=== PATIENT | female | born 1950 | race Caucasian/White ===

== ENCOUNTER 2017-06-14 22:03 | Emergency (ER) | payer MEDICARE, OTHER ==
--- NOTE | 2017-06-14 22:42 | EDM.PDOC ---
ED HPI GENERAL MEDICAL PROBLEM - General Chief Complaint: Cardiovascular Problem Stated Complaint: irregular heart beat, dizzy, WOLF Time Seen by Provider: 06/14/17 22:25 Source of Information: Reports: Patient History Limitations: Reports: No Limitations - History of Present Illness INITIAL COMMENTS - FREE TEXT/NARRATIVE: Patient is a 15-year-old who states that for the last 3 days has not been feeling her usual self she has noticed increase irregular rhythm dizziness and headache in for evaluation EKG at this time done revealed normal sinus rhythm without any PVCs telemetry does reveal unifocal PVCs Duration: Day(s): (3 days), Getting Worse Location: Reports: Head, Chest Severity: Mild Associated Symptoms: Reports: Headaches Treatments COMMERCIAL LOAN OFFICER: Reports: NSAIDS Frontal Headache Pain Score (Numeric/FACES): 5 - Related Data Allergies Allergy/AdvReac Type Severity Reaction Status Date / Time No Known Allergies Allergy Verified 06/14/17 22:04 Home Meds: Home Meds Escitalopram [Lexapro] 20 mg PO DAILY 04/01/14 [History] Multivit-Min/FA/Lycopene/Lut [Centrum Silver] 1 tab PO DAILY 04/01/14 [History] Triamterene/Hydrochlorothiazid [Triamterene-HCTZ 37.5-25 MG] 1 tab PO DAILY 05/15 [History] Social & Family History - Tobacco Use Smoking Status *Q: Never Smoker Years of Tobacco use: 1 Used Tobacco, but Quit: Yes Second Hand Smoke Exposure: No - Caffeine Use Caffeine Use: Reports: Coffee - Alcohol Use Days Per Week of Alcohol Use: 0 - Recreational Drug Use Recreational Drug Use: No Drug Use in Last 12 Months: No ED ROS GENERAL - Review of Systems Review Of Systems: See Below Constitutional: Reports: Fatigue HEENT: Reports: No Symptoms Respiratory: Reports: No Symptoms Cardiovascular: Reports: No Symptoms Endocrine: Reports: No Symptoms GI/Abdominal: Reports: No Symptoms : Reports: No Symptoms Musculoskeletal: Reports: No Symptoms Skin: Reports: No Symptoms Neurological: Reports: Headache Psychiatric: Reports: No Symptoms Hematologic/Lymphatic: Reports: No Symptoms Immunologic: Reports: No Symptoms ED EXAM, GENERAL - Physical Exam Exam: See Below Exam Limited By: No Limitations General Appearance: Alert, WD/WN, No Apparent Distress Ears: Normal External Exam, Normal Canal, Hearing Grossly Normal, Normal TMs Ear Exam: Bilateral Ear: Auricle Normal, Canal Normal, TM normal Nose: Normal Inspection, Normal Mucosa, No Blood Throat/Mouth: Normal Inspection, Normal Lips, Normal Teeth, Normal Gums, Normal Oropharynx, Normal Voice, No Airway Compromise Head: Atraumatic, Normocephalic Neck: Normal Inspection, Supple, Non-Tender, Full Range of Motion Respiratory/Chest: No Respiratory Distress Cardiovascular: Normal Peripheral Pulses, Regular Rate, Rhythm (Occasional PVCs) GI/Abdominal: Normal Bowel Sounds, Soft, Non-Tender, No Organomegaly, No Distention, No Abnormal Bruit, No Mass (Female) Exam: Deferred Rectal (Female) Exam: Deferred Back Exam: Normal Inspection, Full Range of Motion, NT Extremities: Normal Inspection, Normal Range of Motion, Non-Tender, Normal Capillary Refill, No Pedal Edema Neurological: Alert, Oriented, CN II-XII Intact, Normal Cognition, Normal Gait, Normal Reflexes, No Motor/Sensory Deficits Psychiatric: Normal Affect, Normal Mood Course - Vital Signs Last Recorded V/S: Last Vital Signs Temp 98 F 06/14/17 22:03 Pulse 71 06/14/17 22:03 Resp 20 06/14/17 22:03 BP 157/83 H 06/14/17 22:03 Pulse Ox 100 06/14/17 22:03 - Orders/Labs/Meds Orders: Active Orders 24 hr Category Date Time Status EKG Documentation Completion [RC] ASDIRECTED Care 06/14/17 22:12 Active Chest 2V [CR] Stat Exams 06/14/17 22:12 Ordered COMPREHENSIVE METABOLIC PN,CMP [CHEM] Stat Lab 06/14/17 22:11 Ordered TROPONIN I [CHEM] Stat Lab 06/14/17 22:11 Ordered EKG 12 Lead [EK] Routine Ther 06/14/17 22:11 Ordered Labs: Laboratory Tests 06/14/17 Range/Units 22:20 WBC 9.0 (4.0-10.2) K/uL RBC 3.90 (3.77-5.09) M/uL Hgb 12.3 (11.7-15.5) g/dL Hct 37.1 (34.0-46.0) % MCV 95.1 (84.0-98.0) fL MCH 31.5 (28.2-33.3) pg MCHC 33.2 (31.7-36.0) g/dL RDW 13.6 (11.2-14.1) % Plt Count 187 (150-350) K/uL Neut % (Auto) 54.0 (45.0-80.0) % Lymph % (Auto) 31.2 (10.0-50.0) % [place] % (Auto) 12.4 (2.0-14.0) % Eos % (Auto) 2.1 (0.0-5.0) % Baso % (Auto) 0.3 (0.0-2.0) % Neut # (Auto) 4.87 (1.40-7.00) K/uL Lymph # (Auto) 2.82 (0.50-3.50) K/uL [place] # (Auto) 1.12 H (0.00-1.00) K/uL Eos # (Auto) 0.19 (0.00-0.50) K/uL Baso # (Auto) 0.03 (0.00-0.20) K/uL Departure - Departure Time of Disposition: 23:16 Disposition: Home, Self-Care 01 Clinical Impression: Unifocal PVCs Instructions: Premature Ventricular Contraction Referrals: Gogo Brooks ASSEMBLER FOR P[employer] OVER MACHINE [Primary Care Provider] - Care Plan Goals: Patient explained the PVCs will send home follow up with cardiology or primary if symptoms worsen - My Orders Last 24 Hours: My Active Orders 06/14/17 22:11 COMPREHENSIVE METABOLIC PN,CMP [CHEM] Stat TROPONIN I [CHEM] Stat EKG 12 Lead [EK] Routine 06/14/17 22:12 EKG Documentation Completion [RC] ASDIRECTED Chest 2V [CR] Stat - Assessment/Plan Last 24 Hours: My Active Orders 06/14/17 22:11 COMPREHENSIVE METABOLIC PN,CMP [CHEM] Stat TROPONIN I [CHEM] Stat EKG 12 Lead [EK] Routine 06/14/17 22:12 EKG Documentation Completion [RC] ASDIRECTED Chest 2V [CR] Stat
[2017-06-14 23:18] VITALS: BP 120/69
== END 2017-06-14 23:28 | disposition home or self-care (01) ==
LOC: LL.ED 22:03
DX: I49.3 Ventricular premature depolarization (principal); Z87.891 Personal history of nicotine dependence; Z79.899 Other long term (current) drug therapy
CPT/HCPCS: 36415; 71046; 80053; 84484; 85025; 93005; 99285

== ENCOUNTER 2018-09-26 13:16 | Emergency (ER) | payer MEDICARE, OTHER ==
[2018-09-26 13:22] VITALS: BP 150/75
--- NOTE | 2018-09-26 14:03 | EDM.PDOC ---
ED HPI GENERAL MEDICAL PROBLEM - General Chief Complaint: Bite:Animal, Insect Stated Complaint: tick bite Time Seen by Provider: 09/26/18 13:54 Source of Information: Reports: Patient History Limitations: Reports: No Limitations - History of Present Illness INITIAL COMMENTS - FREE TEXT/NARRATIVE: Patient concerned about itchy red area around a tick bite in right calf area. Tick was normal sized tick per patient. She thinks she pulled it out 4-5 days ago. Not painful in area. No fevers/chills. No drainage. No other complaints. - Related Data Allergies Allergy/AdvReac Type Severity Reaction Status Date / Time No Known Allergies Allergy Verified 09/26/18 13:21 Home Meds: Home Meds Escitalopram [Lexapro] 20 mg PO DAILY 04/01/14 [History] Multivit-Min/FA/Lycopene/Lut [Centrum Silver] 1 tab PO DAILY 04/01/14 [History] Triamterene/Hydrochlorothiazid [Triamterene-HCTZ 37.5-25 MG] 0.5 tab PO DAILY [History] Famotidine 20 mg PO DAILY 09/26/18 [History] Fluconazole [Diflucan] 150 mg PO ONETIME #1 tab 09/26/18 [Rx] Metoprolol Succinate [Toprol XL] 25 mg PO DAILY 09/26/18 [History] Pravastatin Sodium 10 mg PO DAILY 09/26/18 [History] Temazepam 15 mg PO BEDTIME 09/26/18 [History] cephALEXin [Keflex] 500 mg PO Q8H #15 cap 09/26/18 [Rx] Past Medical History Cardiovascular History: Reports: High Cholesterol, Hypertension Gastrointestinal History: Reports: GERD Psychiatric History: Reports: Anxiety, Depression Social & Family History - Caffeine Use Caffeine Use: Reports: Coffee ED ROS GENERAL - Review of Systems Review Of Systems: ROS reveals no pertinent complaints other than HPI. ED EXAM, SKIN/RASH Exam: See Below Exam Limited By: No Limitations General Appearance: Alert, WD/WN, No Apparent Distress Eye Exam: Bilateral Eye: Foreign Body, PERRL Head: Atraumatic, Normocephalic Neck: Supple Respiratory/Chest: No Respiratory Distress Neurological: Alert, Oriented, Normal Cognition, Normal Gait Psychiatric: Normal Affect, Normal Mood Skin: Other (Area of redness noted approx 10cm across just below right knee on patient's calf. No drainage/pustule/vesicle noted in center. Not warm to touch. No streaking of redness. ) Course - Vital Signs Last Recorded V/S: Last Vital Signs Temp 36.8 C 09/26/18 13:17 Pulse 55 L 09/26/18 13:17 Resp 20 09/26/18 13:17 BP 150/75 H 09/26/18 13:17 Pulse Ox 99 09/26/18 13:17 - Re-Assessments/Exams Free Text/Narrative Re-Assessment/Exam: 09/26/18 15:53 Suspect most likely a dermatitis/allergic type of reaction to the tick bite given the appearance of the rash in addition to it being itchy rather than painful. Will cover for the potential of cellulitis however with Keflex. Patient given enough Keflex from ER stock to begin the medication given that this is the weekend. Not a deer tick according to patient, so no suspicion of potential of Lyme disease given the type of tick described. Patient may try Benadryl to see if it is helpful in relieving the itching. Precautions reviewed. To observe for change and follow up as needed. Departure - Departure Time of Disposition: 14:00 Disposition: Home, Self-Care 01 Condition: Good Clinical Impression: Tick bite of calf Qualifiers: Encounter type: initial encounter Laterality: unspecified laterality Qualified Code(s): S80.869A - Insect bite (nonvenomous), unspecified lower leg, initial encounter - Discharge Information *PRESCRIPTION DRUG MONITORING PROGRAM REVIEWED*: Not Applicable *COPY OF PRESCRIPTION DRUG MONITORING REPORT IN PATIENT NOEL: Not Applicable Prescriptions: cephALEXin [Keflex] 500 mg PO Q8H #15 cap Fluconazole [Diflucan] 150 mg PO ONETIME #1 tab Instructions: Tick Bite Information, Adult, [id number] Referrals: PCP,Unknown [Primary Care Provider] - Forms: ED Department Discharge Additional Instructions: Watch for any worsening symptoms. If you don't get improvement of the rash by Friday please get rechecked. Follow up at clinic or ER if you develop fevers/chills/worsening signs of infection.
== END 2018-09-26 14:00 | disposition home or self-care (01) ==
LOC: LL.ED 13:16
DX: S80.861A Insect bite (nonvenomous), right lower leg, initial encounter (principal); I10 Essential (primary) hypertension; F41.9 Anxiety disorder, unspecified; F32.9 Major depressive disorder, single episode, unspecified; Z79.899 Other long term (current) drug therapy; W57.XXXA Bitten or stung by nonvenomous insect and other nonvenomous arthropods, initial encounter
CPT/HCPCS: 99281

== ENCOUNTER 2019-06-17 20:55 | Emergency (ER) | payer MEDICARE, OTHER ==
[2019-06-17 21:06] VITALS: BP 115/69; PULSE 57
--- NOTE | 2019-06-17 21:42 | EDM.PDOC ---
ED HPI GENERAL MEDICAL PROBLEM - General Chief Complaint: Respiratory Problem Stated Complaint: cough, low grade temp Time Seen by Provider: 06/17/19 20:57 Source of Information: Reports: Patient History Limitations: Reports: No Limitations - History of Present Illness INITIAL COMMENTS - FREE TEXT/NARRATIVE: Pt with sinus infection in May Treated with antibiotics Cough since then No fever cough is intermittent Some congestion Onset: Gradual Duration: Week(s):, Intermittent Location: Reports: Chest Chest Pain Score (Numeric/FACES): 6 Frontal Headache Pain Score (Numeric/FACES): 7 - Related Data Allergies Allergy/AdvReac Type Severity Reaction Status Date / Time No Known Allergies Allergy Verified 09/26/18 13:21 Home Meds: Home Meds Escitalopram [Lexapro] 20 mg PO DAILY 04/01/14 [History] Multivit-Min/FA/Lycopene/Lut [Centrum Silver] 1 tab PO DAILY 04/01/14 [History] Triamterene/Hydrochlorothiazid [Triamterene-HCTZ 37.5-25 MG] 0.5 tab PO DAILY [History] Famotidine 20 mg PO DAILY 09/26/18 [History] Metoprolol Succinate [Toprol XL] 25 mg PO DAILY 09/26/18 [History] Pravastatin Sodium 10 mg PO DAILY 09/26/18 [History] D-Methorphan/PE/Acetaminophen [Mucinex Sinus-Max Vinod-Pain Cp] 1 each PO Q12HR 06/17/19 [History] Topiramate [Topamax] 50 mg PO DAILY 06/17/19 [History] traZODone HCl [Trazodone HCl] 50 mg PO DAILY 06/17/19 [History] Past Medical History Cardiovascular History: Reports: High Cholesterol, Hypertension Gastrointestinal History: Reports: GERD Psychiatric History: Reports: Anxiety, Depression Social & Family History - Tobacco Use Smoking Status *Q: Former Smoker Used Tobacco, but Quit: Yes Month/Year Tobacco Last Used: >50 years Second Hand Smoke Exposure: Yes - Caffeine Use Caffeine Use: Reports: Coffee - Recreational Drug Use Recreational Drug Use: No ED ROS GENERAL - Review of Systems Review Of Systems: See Below Respiratory: Reports: Shortness of Breath, Cough Cardiovascular: Reports: No Symptoms GI/Abdominal: Reports: No Symptoms ED EXAM, GENERAL - Physical Exam Exam: See Below General Appearance: Alert, WD/WN Neck: Supple Respiratory/Chest: Decreased Breath Sounds Cardiovascular: Regular Rate, Rhythm Course - Vital Signs Last Recorded V/S: Last Vital Signs Temp 96.6 F L 06/17/19 21:04 Pulse 57 L 06/17/19 21:04 Resp 18 06/17/19 21:04 BP 115/69 06/17/19 21:04 Pulse Ox 95 06/17/19 21:04 - Orders/Labs/Meds Orders: Active Orders 24 hr Category Date Time Status Chest 2V [CR] Stat Exams 06/17/19 20:58 Taken Isolation [COMM] Routine Oth 06/17/19 20:58 Active Labs: Laboratory Tests 06/17/19 Range/Units 21:15 WBC 9.2 (4.0-10.2) K/uL RBC 4.13 (3.77-5.09) M/uL Hgb 12.6 (11.7-15.5) g/dL Hct 38.5 (34.0-46.0) % MCV 93.2 (84.0-98.0) fL MCH 30.5 (28.2-33.3) pg MCHC 32.7 (31.7-36.0) g/dL RDW 12.9 (11.2-14.1) % Plt Count 165 (150-350) K/uL Neut % (Auto) 55.1 (45.0-80.0) % Lymph % (Auto) 30.7 (10.0-50.0) % [place] % (Auto) 10.8 (2.0-14.0) % Eos % (Auto) 3.0 (0.0-5.0) % Baso % (Auto) 0.4 (0.0-2.0) % Neut # (Auto) 5.04 (1.40-7.00) K/uL Lymph # (Auto) 2.81 (0.50-3.50) K/uL [place] # (Auto) 0.99 (0.00-1.00) K/uL Eos # (Auto) 0.27 (0.00-0.50) K/uL Baso # (Auto) 0.04 (0.00-0.20) K/uL - Re-Assessments/Exams Free Text/Narrative Re-Assessment/Exam: 06/17/19 21:41 Pt stable in ER See lab Departure - Departure Time of Disposition: 21:45 Disposition: Home, Self-Care 01 Clinical Impression: Cough - Discharge Information *PRESCRIPTION DRUG MONITORING PROGRAM REVIEWED*: Not Applicable *COPY OF PRESCRIPTION DRUG MONITORING REPORT IN PATIENT NOEL: Not Applicable Instructions: Cough, Adult, [id number] Referrals: Gogo Brooks DRYWALL INSTALLER [Primary Care Provider] - Additional Instructions: Follow up in clinic Sepsis Event Note - Evaluation Sepsis Screening Result: No Definite Risk - Focused Exam Vital Signs: Vital Signs Temp Pulse Resp BP Pulse Ox 06/17/19 21:04 96.6 F L 57 L 18 115/69 95 Date Exam was Performed: 06/17/19 Time Exam was Performed: 21:39 - My Orders Last 24 Hours: My Active Orders 06/17/19 20:58 Chest 2V [CR] Stat Isolation [COMM] Routine - Assessment/Plan Last 24 Hours: My Active Orders 06/17/19 20:58 Chest 2V [CR] Stat Isolation [COMM] Routine
== END 2019-06-17 21:55 | disposition home or self-care (01) ==
LOC: LL.ED 20:55
DX: R05 Cough (principal); I10 Essential (primary) hypertension; E78.00 Pure hypercholesterolemia, unspecified; F41.9 Anxiety disorder, unspecified; F32.9 Major depressive disorder, single episode, unspecified; K21.9 Gastro-esophageal reflux disease without esophagitis; Z87.891 Personal history of nicotine dependence
CPT/HCPCS: 36415; 71046; 85025; 87804; 99283-25

== ENCOUNTER 2020-01-03 10:00 | Emergency (ER) | payer MEDICARE, OTHER ==
[2020-01-03 10:34] VITALS: BP 93/69; PULSE 80
[2020-01-03 10:59] LABS: CHLORIDE,CL 104 mmol/L (98-107); SODIUM,NA 139 mmol/L (136-145)
[2020-01-03] MEDS ORDERED: cefTRIAXone 1 GM Vial IM ONE (11:44)
--- NOTE | 2020-01-03 11:44 | EDM.PDOC ---
ED HPI GENERAL MEDICAL PROBLEM - General Chief Complaint: General Stated Complaint: fever, couch, sore throat Time Seen by Provider: 01/03/20 10:15 Source of Information: Reports: Patient History Limitations: Reports: No Limitations - History of Present Illness INITIAL COMMENTS - FREE TEXT/NARRATIVE: Pt with fever, cough and sore throat for 5 days Has hx/o asthma No N/V/D Some increased SOB No chest pain No known Covid exposures Onset: Gradual Duration: Day(s): Location: Reports: Chest Severity: Moderate Treatments ATTENDING ANESTHESIOLOGIST: Reports: NSAIDS - Related Data Allergies Allergy/AdvReac Type Severity Reaction Status Date / Time No Known Allergies Allergy Verified 01/03/20 10:51 Home Meds: Home Meds Escitalopram [Lexapro] 20 mg PO DAILY 04/01/14 [History] Multivit-Min/FA/Lycopene/Lut [Centrum Silver] 1 tab PO DAILY 04/01/14 [History] Triamterene/Hydrochlorothiazid [Triamterene-HCTZ 37.5-25 MG] 0.5 tab PO DAILY 04/01/14 [History] Famotidine 20 mg PO DAILY 09/26/18 [History] Metoprolol Succinate [Toprol XL] 25 mg PO DAILY 09/26/18 [History] Pravastatin Sodium 10 mg PO DAILY 09/26/18 [History] traZODone HCl [Trazodone HCl] 50 mg PO DAILY 06/17/19 [History] Naproxen Sodium [Aleve] 220 mg PO Q4H PRN 01/03/20 [History] Past Medical History HEENT History: Reports: Impaired Vision Cardiovascular History: Reports: High Cholesterol, Hypertension Respiratory History: Reports: Sleep Apnea Other Respiratory History: Uses CPAP Gastrointestinal History: Reports: GERD Genitourinary History: Reports: None LIFE UNDERWRITER History: Reports: Musculoskeletal History: Reports: None Neurological History: Reports: None Psychiatric History: Reports: Anxiety, Depression Endocrine/Metabolic History: Reports: Obesity/BMI 30+ Hematologic History: Reports: None Immunologic History: Reports: None Oncologic (Cancer) History: Reports: None Dermatologic History: Reports: None - Past Surgical History Head Surgeries/Procedures: Reports: None HEENT Surgical History: Reports: Cataract Surgery Respiratory Surgical History: Reports: None Female Surgical History: Reports: Hysterectomy Endocrine Surgical History: Reports: None Neurological Surgical History: Reports: None Musculoskeletal Surgical History: Reports: None Social & Family History - Family History Family Medical History: Noncontributory - Tobacco Use Smoking Status *Q: Former Smoker Used Tobacco, but Quit: Yes Month/Year Tobacco Last Used: 1 Second Hand Smoke Exposure: Yes - Caffeine Use Caffeine Use: Reports: Coffee ED ROS GENERAL - Review of Systems Review Of Systems: See Below Constitutional: Reports: Fever HEENT: Reports: Throat Pain Respiratory: Reports: Shortness of Breath, Cough : Reports: Flank Pain, Hematuria Musculoskeletal: Reports: No Symptoms ED EXAM, GENERAL - Physical Exam Exam: See Below Exam Limited By: No Limitations General Appearance: Mild Distress Respiratory/Chest: Decreased Breath Sounds Cardiovascular: Regular Rate, Rhythm Back Exam: CVA Tenderness (L), CVA Tenderness (R) Extremities: Normal Inspection Neurological: Alert, Oriented Course - Vital Signs Last Recorded V/S: Last Vital Signs Temp 99.9 F 01/03/20 10:32 Pulse 80 01/03/20 10:32 Resp 16 01/03/20 10:32 BP 93/69 01/03/20 10:32 Pulse Ox 96 01/03/20 10:32 - Orders/Labs/Meds Orders: Active Orders 24 hr Category Date Time Status CXR [Chest 1V Frontal] [CR] Stat Exams 01/03/20 10:20 Taken CULTURE STREP A CONFIRMATION [RM] Stat Lab 01/03/20 10:10 Results STREP SCRN A RAPID W CULT CONF [RM] Stat Lab 01/03/20 10:10 Results Isolation [COMM] Routine Oth 01/03/20 10:21 Active Labs: Laboratory Tests 01/03/20 01/03/20 01/03/20 Range/Units 10:10 10:30 10:30 WBC 6.7 (4.0-10.2) K/uL RBC 4.25 (3.77-5.09) M/uL Hgb 13.1 (11.7-15.5) g/dL Hct 40.1 (34.0-46.0) % MCV 94.4 (84.0-98.0) fL MCH 30.8 (28.2-33.3) pg MCHC 32.7 (31.7-36.0) g/dL RDW 13.2 (11.2-14.1) % Plt Count 170 (150-350) K/uL Neut % (Auto) 63.7 (45.0-80.0) % Lymph % (Auto) 18.4 (10.0-50.0) % [place] % (Auto) 13.3 (2.0-14.0) % Eos % (Auto) 4.2 (0.0-5.0) % Baso % (Auto) 0.4 (0.0-2.0) % Neut # (Auto) 4.25 (1.40-7.00) K/uL Lymph # (Auto) 1.23 (0.50-3.50) K/uL [place] # (Auto) 0.89 (0.00-1.00) K/uL Eos # (Auto) 0.28 (0.00-0.50) K/uL Baso # (Auto) 0.03 (0.00-0.20) K/uL Sodium 139 (136-145) mmol/L Potassium 3.9 (3.5-5.1) mmol/L Chloride 104 (98-107) mmol/L Carbon Dioxide 24.5 (21.0-32.0) mmol/L BUN 21 H (7-18) mg/dL Creatinine 0.98 (0.51-1.17) mg/dL Est Cr Clr Drug Dosing TNP Estimated GFR (MDRD) 56 mL/min Glucose 169 H (74-106) mg/dL Calcium 8.8 (8.5-10.1) mg/dL Total Bilirubin 0.3 (0.2-1.0) mg/dL AST 26 (15-37) U/L ALT 35 (12-78) U/L Alkaline Phosphatase 106 (46-116) IU/L Total Protein 7.3 (6.4-8.2) g/dL Albumin 3.5 (3.4-5.0) g/dL Specimen Type Urine Color Urine Appearance Urine pH (5.0-9.0) Ur Specific [place] (1.005-1.030) Urine Protein (NEGATIVE) mg/dL Urine Glucose (UA) (NEGATIVE) mg/dL Urine Ketones (NEGATIVE) mg/dL Urine Occult Blood (NEGATIVE) Urine Nitrite (NEGATIVE) Urine Bilirubin (NEGATIVE) Urine Urobilinogen (0.2-1.0) E.U./dL Ur Leukocyte Esterase (NEGATIVE) Urine RBC /HPF Urine WBC /HPF Ur Epithelial Cells /LPF Urine Bacteria (NONE TO FEW) /HPF SARS-CoV-2 RNA (DOMINIC) Positive H (NEGATIVE) 01/03/20 Range/Units 10:50 WBC (4.0-10.2) K/uL RBC (3.77-5.09) M/uL Hgb (11.7-15.5) g/dL Hct (34.0-46.0) % MCV (84.0-98.0) fL MCH (28.2-33.3) pg MCHC (31.7-36.0) g/dL RDW (11.2-14.1) % Plt Count (150-350) K/uL Neut % (Auto) (45.0-80.0) % Lymph % (Auto) (10.0-50.0) % [place] % (Auto) (2.0-14.0) % Eos % (Auto) (0.0-5.0) % Baso % (Auto) (0.0-2.0) % Neut # (Auto) (1.40-7.00) K/uL Lymph # (Auto) (0.50-3.50) K/uL [place] # (Auto) (0.00-1.00) K/uL Eos # (Auto) (0.00-0.50) K/uL Baso # (Auto) (0.00-0.20) K/uL Sodium (136-145) mmol/L Potassium (3.5-5.1) mmol/L Chloride (98-107) mmol/L Carbon Dioxide (21.0-32.0) mmol/L BUN (7-18) mg/dL Creatinine (0.51-1.17) mg/dL Est Cr Clr Drug Dosing Estimated GFR (MDRD) mL/min Glucose (74-106) mg/dL Calcium (8.5-10.1) mg/dL Total Bilirubin (0.2-1.0) mg/dL AST (15-37) U/L ALT (12-78) U/L Alkaline Phosphatase (46-116) IU/L Total Protein (6.4-8.2) g/dL Albumin (3.4-5.0) g/dL Specimen Type Urinvoid Urine Color Yellow Urine Appearance Clear Urine pH 5.0 (5.0-9.0) Ur Specific [place] >= 1.030 (1.005-1.030) Urine Protein 30 H (NEGATIVE) mg/dL Urine Glucose (UA) Negative (NEGATIVE) mg/dL Urine Ketones Trace H (NEGATIVE) mg/dL Urine Occult Blood Large H (NEGATIVE) Urine Nitrite Negative (NEGATIVE) Urine Bilirubin Negative (NEGATIVE) Urine Urobilinogen 0.2 (0.2-1.0) E.U./dL Ur Leukocyte Esterase Moderate H (NEGATIVE) Urine RBC 20-30 H /HPF Urine WBC 50-75 H /HPF Ur Epithelial Cells Rare /LPF Urine Bacteria Moderate H (NONE TO FEW) /HPF SARS-CoV-2 RNA (DOMINIC) (NEGATIVE) - Re-Assessments/Exams Free Text/Narrative Re-Assessment/Exam: 01/03/20 11:41 See lab Pt Covid positive 01/03/20 11:41 Pt given Rocephin 1 gm IM in ER Departure - Departure Time of Disposition: 11:45 Disposition: Home, Self-Care 01 Clinical Impression: UTI, Urinary tract infectious disease, COVID-19 virus detected - Discharge Information *PRESCRIPTION DRUG MONITORING PROGRAM REVIEWED*: Not Applicable *COPY OF PRESCRIPTION DRUG MONITORING REPORT IN PATIENT NOEL: Not Applicable Instructions: Urinary Tract Infection, Adult, [id number], Prevent the Spread of COVID-19 if You Are Sick - [facility] Additional Instructions: Rx Bactrim DS One pill twice a day for 10 days Rx Tessalon Perles three times a day for cough Follow up in clinic Sepsis Event Note (ED) - Evaluation Sepsis Screening Result: No Definite Risk - Focused Exam Vital Signs: Vital Signs Temp Pulse Resp BP Pulse Ox 01/03/20 10:32 99.9 F 80 16 93/69 96 - My Orders Last 24 Hours: My Active Orders 01/03/20 10:10 CULTURE STREP A CONFIRMATION [RM] Stat STREP SCRN A RAPID W CULT CONF [RM] Stat 01/03/20 10:20 CXR [Chest 1V Frontal] [CR] Stat 01/03/20 10:21 Isolation [COMM] Routine - Assessment/Plan Last 24 Hours: My Active Orders 01/03/20 10:10 CULTURE STREP A CONFIRMATION [RM] Stat STREP SCRN A RAPID W CULT CONF [RM] Stat 01/03/20 10:20 CXR [Chest 1V Frontal] [CR] Stat 01/03/20 10:21 Isolation [COMM] Routine
== END 2020-01-03 12:45 | disposition home or self-care (01) ==
LOC: LL.ED 10:00
DX: U07.1 COVID-19 (principal); N39.0 Urinary tract infection, site not specified; F41.9 Anxiety disorder, unspecified; F32.9 Major depressive disorder, single episode, unspecified; E66.9 Obesity, unspecified; I10 Essential (primary) hypertension; K21.9 Gastro-esophageal reflux disease without esophagitis; E78.00 Pure hypercholesterolemia, unspecified; Z90.49 Acquired absence of other specified parts of digestive tract; Z87.891 Personal history of nicotine dependence; Z79.899 Other long term (current) drug therapy
CPT/HCPCS: 36415; 71045; 80053; 81001; 85025; 87081; 87086; 87088; 87186; 87430; 87804; 96372; 99283; 99283-25; J0696; J2001; U0002

== ENCOUNTER 2021-03-08 20:36 | Emergency (ER) | payer MEDICARE, OTHER ==
[2021-03-08] MEDS ORDERED: Sodium Chloride 0.9% 10 ML Syringe FLUSH PRN (20:48)
[2021-03-08 21:27] LABS: ANION GAP 12.9 meq/L (7-15); CHLORIDE,CL 108 mmol/L (98-107); SODIUM,NA 144 mmol/L (136-145)
[2021-03-08] MEDS ORDERED: Iopamidol 755 Mg/ML 100 ML Bottle IVPUSH ONE (21:51)
[2021-03-08 22:49] VITALS: BP 158/82; PULSE 68
[2021-03-08] MEDS ORDERED: Furosemide 40 MG/4 ML VIAL IVPUSH ONE (23:23)
--- NOTE | 2021-03-08 23:29 | EDM.PDOC ---
ED HPI GENERAL MEDICAL PROBLEM - General Chief Complaint: Respiratory Problem Stated Complaint: SOB Time Seen by Provider: 03/08/21 21:10 Source of Information: Reports: Patient History Limitations: Reports: No Limitations - History of Present Illness INITIAL COMMENTS - FREE TEXT/NARRATIVE: Patient comes to ER with complaint of gradual increasing SOB/peripheral edema over a number of weeks. No med/supplement changes. Did stop taking Eliquis last month. No fevers/chills/other changes. 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 8 pound weight gain recently - Related Data Allergies Allergy/AdvReac Type Severity Reaction Status Date / Time No Known Allergies Allergy Verified 03/08/21 20:41 Home Meds: Home Meds Escitalopram [Lexapro] 20 mg PO DAILY 04/01/14 [History] Multivit-Min/FA/Lycopene/Lut [Centrum Silver] 1 tab PO DAILY 04/01/14 [History] Triamterene/Hydrochlorothiazid [Triamterene-HCTZ 37.5-25 MG] 0.5 tab PO DAILY 04/01/14 [History] Famotidine 40 mg PO DAILY 09/26/18 [History] Metoprolol Succinate [Toprol XL] 25 mg PO DAILY 09/26/18 [History] Pravastatin Sodium 10 mg PO DAILY 09/26/18 [History] traZODone HCl [Trazodone HCl] 50 mg PO DAILY 06/17/19 [History] Naproxen Sodium [Aleve] 440 mg PO Q12HR PRN 01/03/20 [History] Furosemide [Lasix] 20 mg PO DAILY #5 tab 03/08/21 [Rx] Past Medical History HEENT History: Reports: Impaired Vision Cardiovascular History: Reports: High Cholesterol, Hypertension Respiratory History: Reports: Asthma, PE, Sleep Apnea Other Respiratory History: Uses CPAP Gastrointestinal History: Reports: GERD Genitourinary History: Reports: None [employer] History: Reports: Musculoskeletal History: Reports: None Neurological History: Reports: None Psychiatric History: Reports: Anxiety, Depression Endocrine/Metabolic History: Reports: Obesity/BMI 30+ Hematologic History: Reports: None Immunologic History: Reports: None Oncologic (Cancer) History: Reports: None Dermatologic History: Reports: None - Past Surgical History Head Surgeries/Procedures: Reports: None HEENT Surgical History: Reports: Cataract Surgery Respiratory Surgical History: Reports: None Female Surgical History: Reports: Hysterectomy Endocrine Surgical History: Reports: None Neurological Surgical History: Reports: None Musculoskeletal Surgical History: Reports: None Social & Family History - Family History Family Medical History: No Pertinent Family History - Tobacco Use Tobacco Use Status *Q: Never Tobacco User Second Hand Smoke Exposure: No - Caffeine Use Caffeine Use: Reports: Coffee, Soda - Recreational Drug Use Recreational Drug Use: No ED ROS GENERAL - Review of Systems Review Of Systems: Comprehensive ROS is negative, except as noted in HPI. ED EXAM, GENERAL - Physical Exam Exam: See Below Exam Limited By: No Limitations General Appearance: Alert, No Apparent Distress, Obese Eye Exam: Bilateral Eye: EOMI, PERRL Ears: Normal External Exam, Normal Canal, Hearing Grossly Normal Nose: Normal Inspection Throat/Mouth: Normal Inspection, Normal Lips, Normal Voice, No Airway Compromise Head: Atraumatic, Normocephalic Neck: Supple, Non-Tender, Full Range of Motion Respiratory/Chest: No Respiratory Distress, Lungs Clear, Normal Breath Sounds, No Accessory Muscle Use, Chest Non-Tender Cardiovascular: Regular Rate, Rhythm, No Murmur GI/Abdominal: Normal Bowel Sounds, Soft, Non-Tender (Female) Exam: Deferred Rectal (Female) Exam: Deferred Back Exam: No: CVA Tenderness (L), CVA Tenderness (R), Muscle Spasm Extremities: Non-Tender, Normal Capillary Refill, Pedal Edema Neurological: Alert, Oriented, Normal Cognition, No Motor/Sensory Deficits Psychiatric: Normal Affect, Normal Mood Skin Exam: Warm, Dry, Intact, Normal Color #1 Interpretation EKG Date: 03/08/21 Time: 21:10 Rhythm: Other (Sinus rhythm) Rate (Beats/Min): 71 [place]: LAD-Left Austin Deviation P-Wave: Present QRS: RBBB ST-T: Other (no obvious ST change suggestive of acute ischemia) QT: Normal Comparison: No Change (from 2018) EKG Interpretation Comments: Some PVCs noted. Course - Vital Signs Last Recorded V/S: Last Vital Signs Temp 36.2 C 03/08/21 20:40 Pulse 68 03/08/21 22:30 Resp 18 03/08/21 22:30 BP 158/82 H 03/08/21 22:30 Pulse Ox 98 03/08/21 22:30 - Orders/Labs/Meds Orders: Active Orders 24 hr Category Date Time Status CXR [Chest 2V] [CR] Stat Exams 03/08/21 20:47 Taken PE Chest [Ang Chest] [CT] Stat Exams 03/08/21 21:45 Taken Peripheral IV Insertion Adult [OM.PC] Routine Oth 03/08/21 20:48 Ordered Labs: Laboratory Tests 03/08/21 03/08/21 03/08/21 Range/Units 20:53 20:53 20:53 WBC 8.6 (4.0-10.2) K/uL RBC 3.90 (3.77-5.09) M/uL Hgb 12.1 (11.7-15.5) g/dL Hct 37.4 (34.0-46.0) % MCV 95.9 (84.0-98.0) fL MCH 31.0 (28.2-33.3) pg MCHC 32.4 (31.7-36.0) g/dL RDW 13.9 (11.2-14.1) % Plt Count 225 (150-350) K/uL Neut % (Auto) 62.3 (45.0-80.0) % Lymph % (Auto) 23.2 (10.0-50.0) % [place] % (Auto) 10.3 (2.0-14.0) % Eos % (Auto) 3.6 (0.0-5.0) % Baso % (Auto) 0.6 (0.0-2.0) % Neut # (Auto) 5.34 (1.40-7.00) K/uL Lymph # (Auto) 1.99 (0.50-3.50) K/uL [place] # (Auto) 0.88 (0.00-1.00) K/uL Eos # (Auto) 0.31 (0.00-0.50) K/uL Baso # (Auto) 0.05 (0.00-0.20) K/uL D-Dimer, Quantitative 759 H (0-400) ng/mL Sodium 144 (136-145) mmol/L Potassium 3.9 (3.5-5.1) mmol/L Chloride 108 H (98-107) mmol/L Carbon Dioxide 27.0 (21.0-32.0) mmol/L Anion Gap 12.9 (7-15) meq/L BUN 21 H (7-18) mg/dL Creatinine 1.14 (0.51-1.17) mg/dL Est Cr Clr Drug Dosing TNP Estimated GFR (MDRD) 47 mL/min Glucose 165 H (70-99) mg/dL Lactic Acid (0.4-2.0) mmol/L Calcium 8.9 (8.5-10.1) mg/dL Total Bilirubin 0.3 (0.2-1.0) mg/dL AST 18 (15-37) U/L ALT 31 (12-78) U/L Alkaline Phosphatase 117 H (46-116) IU/L Troponin I High Sens 9 (<=51) ng/L NT-Pro-B Natriuret Pep 488 H (0-125) pg/mL Total Protein 7.1 (6.4-8.2) g/dL Albumin 3.2 L (3.4-5.0) g/dL 03/08/21 Range/Units 20:53 WBC (4.0-10.2) K/uL RBC (3.77-5.09) M/uL Hgb (11.7-15.5) g/dL Hct (34.0-46.0) % MCV (84.0-98.0) fL MCH (28.2-33.3) pg MCHC (31.7-36.0) g/dL RDW (11.2-14.1) % Plt Count (150-350) K/uL Neut % (Auto) (45.0-80.0) % Lymph % (Auto) (10.0-50.0) % [place] % (Auto) (2.0-14.0) % Eos % (Auto) (0.0-5.0) % Baso % (Auto) (0.0-2.0) % Neut # (Auto) (1.40-7.00) K/uL Lymph # (Auto) (0.50-3.50) K/uL [place] # (Auto) (0.00-1.00) K/uL Eos # (Auto) (0.00-0.50) K/uL Baso # (Auto) (0.00-0.20) K/uL D-Dimer, Quantitative (0-400) ng/mL Sodium (136-145) mmol/L Potassium (3.5-5.1) mmol/L Chloride (98-107) mmol/L Carbon Dioxide (21.0-32.0) mmol/L Anion Gap (7-15) meq/L BUN (7-18) mg/dL Creatinine (0.51-1.17) mg/dL Est Cr Clr Drug Dosing Estimated GFR (MDRD) mL/min Glucose (70-99) mg/dL Lactic Acid 1.0 (0.4-2.0) mmol/L Calcium (8.5-10.1) mg/dL Total Bilirubin (0.2-1.0) mg/dL AST (15-37) U/L ALT (12-78) U/L Alkaline Phosphatase (46-116) IU/L Troponin I High Sens (<=51) ng/L NT-Pro-B Natriuret Pep (0-125) pg/mL Total Protein (6.4-8.2) g/dL Albumin (3.4-5.0) g/dL Meds: Medications Discontinued Medications Generic Name Dose Route Start Last Admin Trade Name Freq PRN Reason Stop Dose Admin Furosemide 40 mg 03/08/21 23:23 03/08/21 23:28 Furosemide 40 Mg/4 Ml Vial IVPUSH 03/08/21 23:24 40 mg NOW ONE Administration Iopamidol 100 ml 03/08/21 21:51 03/08/21 22:46 Iopamidol 755 Mg/Ml 100 Ml Bottle IVPUSH 03/08/21 21:52 100 ml ONETIME ONE Administration Sodium Chloride 10 ml 03/08/21 20:48 03/08/21 23:28 Sodium Chloride 0.9% 10 Ml Syringe FLUSH 10 ml ASDIRECTED PRN Administration Keep Vein Open - Radiology Interpretation Free Text/Narrative:: chest xray unremarkable for acute changes/new infiltrate - Re-Assessments/Exams Free Text/Narrative Re-Assessment/Exam: Chest xray/EKG/labs ordered. Chest xray unremarkable. EKG showed no overall acute changes when compared to previous EKG. Vital signs stable/good room air O2 sats. BP elevated. DDimer 759 Normal lactic and troponin. ProBNP mildly elevated at 488 CT ordered given patient's mild SOB/elevated DDimer and hx of previous PEs. RAdiology noted resolution of previous PEs. No other acute changes other than nonspecific small infiltrate right lung apex. Given peripheral edema and 8 pound weight gain suspect fluid overload. This could also contribute to patient's mild sensation SOB. Will give Lasix and have patient continue lasix over weekend. She is to follow up for recheck at clinic early next week. BP can be rechecked at that time. Further planning as needed at clinic visit. Given lack of fever/cough, no antibiotics initiated at this time for small incidental infiltrate. Patient advised to observe for any symptoms suggestive of respiratory infection such as cough/fever and if she develops these consider initiating antibiotic course of therapy. F/U ED over weekend PRN sudden acute problems. Departure - Departure Time of Disposition: 23:24 Disposition: Home, Self-Care 01 Condition: Good Clinical Impression: Edema Qualifiers: Edema type: generalized Qualified Code(s): R60.1 - Generalized edema Hypertension Qualifiers: Hypertension type: unspecified Qualified Code(s): I10 - Essential (primary) hypertension - Discharge Information *PRESCRIPTION DRUG MONITORING PROGRAM REVIEWED*: Not Applicable *COPY OF PRESCRIPTION DRUG MONITORING REPORT IN PATIENT NOEL: Not Applicable Prescriptions: Furosemide [Lasix] 20 mg PO DAILY #5 tab Instructions: Shortness of Breath, Adult, Flmo-ov-Rnym, Peripheral Edema Referrals: Gogo Brooks NP [Primary Care Provider] - Forms: ED Department Discharge Additional Instructions: See if the lasix helps with the fluid/feeling short of breath. Take one a day starting tomorrow. You will get 5 pills. Take 3 through Friday. Save the other two and use them once every three days. Make an appointment to get rechecked next Friday or Friday. Have electrolytes checked at that time as Lasix can cause your potassium to go low. Observe for any other changes/new symptoms. Return to the ER if you develop new problems such as worsening shortness of breath/fevers/other acute significant changes. BP recheck next week. Sepsis Event Note (ED) - Evaluation Sepsis Screening Result: No Definite Risk - My Orders Last 24 Hours: My Active Orders 03/08/21 20:47 CXR [Chest 2V] [CR] Stat 03/08/21 20:48 Peripheral IV Insertion Adult [OM.PC] Routine 03/08/21 21:45 PE Chest [Ang Chest] [CT] Stat - Assessment/Plan Last 24 Hours: My Active Orders 03/08/21 20:47 CXR [Chest 2V] [CR] Stat 03/08/21 20:48 Peripheral IV Insertion Adult [OM.PC] Routine 03/08/21 21:45 PE Chest [Ang Chest] [CT] Stat
== END 2021-03-08 23:40 | disposition home or self-care (01) ==
LOC: LL.ED 20:36
DX: R60.1 Generalized edema (principal); I10 Essential (primary) hypertension; E78.00 Pure hypercholesterolemia, unspecified; E66.9 Obesity, unspecified; K21.9 Gastro-esophageal reflux disease without esophagitis; Z68.30 Body mass index [BMI] 30.0-30.9, adult; Z79.899 Other long term (current) drug therapy
CPT/HCPCS: 36415; 71046; 71275; 80053; 83605; 83880; 84484; 85025; 85379; 93005; 93010; 96374; 99284; 99285-25; J1940; Q9967

== ENCOUNTER 2021-09-13 19:08 | Emergency (ER) | payer MEDICARE ==
[2021-09-13] MEDS ORDERED: Lidocaine 2% 5 ML SDV INJECT ONE (19:22)
[2021-09-13 19:23] VITALS: BP 146/75; PULSE 58
== END 2021-09-13 20:00 | disposition home or self-care (01) ==
LOC: LL.ED 19:08
DX: S91.112A Laceration without foreign body of left great toe without damage to nail, initial encounter (principal); E78.00 Pure hypercholesterolemia, unspecified; I10 Essential (primary) hypertension; K21.9 Gastro-esophageal reflux disease without esophagitis; E66.9 Obesity, unspecified; Z68.30 Body mass index [BMI] 30.0-30.9, adult; Z79.899 Other long term (current) drug therapy; W26.8XXA Contact with other sharp object(s), not elsewhere classified, initial encounter; Y93.E8 Activity, other personal hygiene
CPT/HCPCS: 12002; 99282-25; 99283

== ENCOUNTER 2022-03-26 10:29 | Emergency (ER) | payer MEDICARE ==
[2022-03-26] MEDS ORDERED: Sodium Chloride 0.9% 10 ML Syringe FLUSH PRN (10:33)
[2022-03-26 10:38] VITALS: BP 167/75; PULSE 58
[2022-03-26] MEDS ORDERED: Iopamidol 755 Mg/ML 100 ML Bottle IVPUSH STA (11:20)
[2022-03-26 11:22] LABS: ANION GAP 8.5 meq/L (7-15)
== END 2022-03-26 12:45 | disposition home or self-care (01) ==
LOC: LL.ED 10:29
DX: U07.1 COVID-19 (principal); E78.00 Pure hypercholesterolemia, unspecified; I10 Essential (primary) hypertension; E66.9 Obesity, unspecified; Z68.34 Body mass index [BMI] 34.0-34.9, adult; Z79.899 Other long term (current) drug therapy
CPT/HCPCS: 36415; 80053; 82550; 84484; 85025; 85379; 93005; 99284

== ENCOUNTER 2022-09-13 13:55 | Emergency (ER) | payer MEDICARE ==
[2022-09-13] MEDS ORDERED: Sodium Chloride 0.9% 10 ML Syringe FLUSH PRN (14:01)
[2022-09-13 14:19] LABS: BASOPHILS ABSOLUTE AUTO 0.03 K/uL (0.00-0.20); BASOPHILS PERCENT AUTO 0.4 % (0.0-2.0); EOSINOPHILS ABSOLUTE AUTO 0.26 K/uL (0.00-0.50); EOSINOPHILS PERCENT AUTO 3.4 % (0.0-5.0); HEMATOCRIT 40.6 % (34.0-46.0); HEMOGLOBIN 13.5 g/dL (11.7-15.5); LYMPHOCYTES ABSOLUTE AUTO 1.56 K/uL (0.50-3.50); LYMPHOCYTES PERCENT AUTO 20.2 % (10.0-50.0); MEAN CORPUSCULAR HEMOGLOBIN 31.1 pg (28.2-33.3); MEAN CORPUSCULAR HGB CONC 33.3 g/dL (31.7-36.0); MEAN CORPUSCULAR VOLUME 93.5 fL (84.0-98.0); MONOCYTES ABSOLUTE AUTO 0.77 K/uL (0.00-1.00); NEUTROPHILS ABSOLUTE AUTO 5.09 K/uL (1.40-7.00); PLATELET COUNT,PLT 202 K/uL (150-350); RED BLOOD CELL COUNT 4.34 M/uL (3.77-5.09); RED CELL DISTRIBUTION WIDTH 13.2 % (11.2-14.1); WHITE BLOOD CELL COUNT,WBC 7.7 K/uL (4.0-10.2)
[2022-09-13 14:41] LABS: CREATINE KINASE,CK 102 U/L (26-308)
[2022-09-13 14:43] LABS: ALANINE AMINOTRANSFERASE,ALT 37 U/L (12-78); ALBUMIN 3.3 g/dL (3.4-5.0); ALKALINE PHOSPHATASE 117 IU/L (46-116); ASPARTATE AMNIOTRANSFERASE,AST 26 U/L (15-37); BILIRUBIN TOTAL 0.4 mg/dL (0.2-1.0); BLOOD UREA NITROGEN,BUN 24 mg/dL (7-18); CALCIUM 9.1 mg/dL (8.5-10.1); CHLORIDE,CL 107 mmol/L (98-107); CREATININE 1.18 mg/dL (0.51-1.17); GLUCOSE RANDOM 177 mg/dL (70-99); POTASSIUM,K 3.8 mmol/L (3.5-5.1); PROTEIN TOTAL,TP 7.1 g/dL (6.4-8.2); SODIUM,NA 139 mmol/L (136-145)
[2022-09-13 14:44] LABS: PRO B-TYPE NATRIUR PEPT,BNPPRO 346 pg/mL (0-125)
[2022-09-13 14:45] LABS: ESTIMATED GFR 49 mL/min (>=60)
[2022-09-13] MEDS ORDERED: Iopamidol 755 Mg/ML 100 ML Bottle IVPUSH ONE (14:57)
[2022-09-13 16:06] LABS: CORONAVIRUS COVID-19 NAA NEGATIVE (NEGATIVE); INFLUENZA A NAA NEGATIVE (NEGATIVE); INFLUENZA B NAA NEGATIVE (NEGATIVE); RESPIRATORY SYNCYTIAL VIR NAA NEGATIVE (NEGATIVE)
[2022-09-13] MEDS ORDERED: Heparin Sodium 5,000 Units/ML Vial IVPUSH ONE (16:40)
[2022-09-13] MEDS ORDERED: Heparin Sodium/0.45% NaCl 500 ML IV SCH (16:45)
[2022-09-13 18:05] VITALS: BP 159/100; PULSE 76
== END 2022-09-13 18:03 ==
LOC: LL.ED 13:55
DX: I26.99 Other pulmonary embolism without acute cor pulmonale (principal); E78.00 Pure hypercholesterolemia, unspecified; I10 Essential (primary) hypertension; J45.909 Unspecified asthma, uncomplicated; K21.9 Gastro-esophageal reflux disease without esophagitis; E66.9 Obesity, unspecified; Z68.35 Body mass index [BMI] 35.0-35.9, adult; Z79.899 Other long term (current) drug therapy; Z79.82 Long term (current) use of aspirin; Z20.822 Contact with and (suspected) exposure to COVID-19
CPT/HCPCS: 0241U; 71045; 71275; 80053; 82550; 83605; 83880; 84484; 85025; 85379; 93005; 93010; 96365; 96376; 99284; 99285-25; J1644; J3490; Q9967

== ENCOUNTER 2023-03-26 15:35 | Emergency (ER) | payer MEDICARE ==
[2023-03-26 15:40] VITALS: BP 156/85; PULSE 70
[2023-03-26 16:19] LABS: BASOPHILS ABSOLUTE AUTO 0.04 K/uL (0.00-0.20); BASOPHILS PERCENT AUTO 0.5 % (0.0-2.0); EOSINOPHILS ABSOLUTE AUTO 0.16 K/uL (0.00-0.50); EOSINOPHILS PERCENT AUTO 2.1 % (0.0-5.0); HEMATOCRIT 37.3 % (34.0-46.0); HEMOGLOBIN 12.1 g/dL (11.7-15.5); LYMPHOCYTES ABSOLUTE AUTO 1.46 K/uL (0.50-3.50); LYMPHOCYTES PERCENT AUTO 19.1 % (10.0-50.0); MEAN CORPUSCULAR HEMOGLOBIN 31.5 pg (28.2-33.3); MEAN CORPUSCULAR HGB CONC 32.4 g/dL (31.7-36.0); MEAN CORPUSCULAR VOLUME 97.1 fL (84.0-98.0); MONOCYTES ABSOLUTE AUTO 0.81 K/uL (0.00-1.00); MONOCYTES PERCENT AUTO 10.6 % (2.0-14.0); NEUTROPHILS ABSOLUTE AUTO 5.17 K/uL (1.40-7.00); NEUTROPHILS PERCENT AUTO 67.7 % (45.0-80.0); PLATELET COUNT,PLT 190 K/uL (150-350); RED BLOOD CELL COUNT 3.84 M/uL (3.77-5.09); RED CELL DISTRIBUTION WIDTH 12.9 % (11.2-14.1); WHITE BLOOD CELL COUNT,WBC 7.6 K/uL (4.0-10.2)
[2023-03-26 16:35] LABS: PROTHROMBIN TIME 9.7 SEC (9.0-11.1)
[2023-03-26 16:39] LABS: ALBUMIN 3.2 g/dL (3.4-5.0); ANION GAP 7.5 meq/L (7-15); BILIRUBIN TOTAL 0.3 mg/dL (0.2-1.0); CALCIUM 9.1 mg/dL (8.5-10.1); CARBON DIOXIDE,CO2 30.5 mmol/L (21.0-32.0); CREATININE 1.16 mg/dL (0.51-1.17); EST CRCL DRUG DOSING (CG) 47.56 mL/min; POTASSIUM,K 3.6 mmol/L (3.5-5.1); PROTEIN TOTAL,TP 6.7 g/dL (6.4-8.2)
[2023-03-26] MEDS ORDERED: Acetaminophen 500 MG Tab PO ONE (17:45)
== END 2023-03-26 18:10 | disposition home or self-care (01) ==
LOC: LL.ED 15:35
DX: S82.832A Other fracture of upper and lower end of left fibula, initial encounter for closed fracture (principal); I10 Essential (primary) hypertension; E78.00 Pure hypercholesterolemia, unspecified; E66.9 Obesity, unspecified; Z79.899 Other long term (current) drug therapy; Z79.82 Long term (current) use of aspirin; Z90.710 Acquired absence of both cervix and uterus; Z68.36 Body mass index [BMI] 36.0-36.9, adult; W01.0XXA Fall on same level from slipping, tripping and stumbling without subsequent striking against object, initial encounter
CPT/HCPCS: 36415; 73502; 73552; 73590; 73700; 80053; 85025; 85610; 99284; A9270; 99283

== ENCOUNTER 2023-11-27 10:10 | Day surgery (SDC) | payer MEDICARE ==
[~2023-11-27 10:10] MED LIST: Midazolam 1 MG/ML 2 ML SDV ONE; Propofol 200 MG/20 ML SDV IV ONE; Propofol 200 MG/20 ML SDV ONE
[2023-11-27] MEDS ORDERED: Sodium Chloride 0.9% 10 ML Syringe FLUSH PRN (10:15)
[2023-11-27] MEDS: Lactated Ringers 1,000 ML IV SCH (10:35)
[2023-11-27 11:40] VITALS: BP 138/94; PULSE 73
== END 2023-11-27 11:55 | disposition home or self-care (01) ==
LOC: LL.SDS 10:10
PROVIDERS: ATTEND Surgery
DX: Z12.11 Encounter for screening for malignant neoplasm of colon (principal); D12.2 Benign neoplasm of ascending colon; R19.5 Other fecal abnormalities; K57.30 Diverticulosis of large intestine without perforation or abscess without bleeding; E78.00 Pure hypercholesterolemia, unspecified; I10 Essential (primary) hypertension; G47.30 Sleep apnea, unspecified; K21.9 Gastro-esophageal reflux disease without esophagitis; F41.8 Other specified anxiety disorders; E66.9 Obesity, unspecified; Z68.32 Body mass index [BMI] 32.0-32.9, adult; Z79.899 Other long term (current) drug therapy; Z79.01 Long term (current) use of anticoagulants
CPT/HCPCS: 00811; 45385; 99100; J2250; J2704; J7120; 88305

== ENCOUNTER 2024-02-18 14:21 | Emergency (ER) | payer MEDICARE ==
[2024-02-18 14:42] VITALS: PULSE 60
[2024-02-18 15:36] VITALS: BP 167/90
== END 2024-02-18 16:00 | disposition home or self-care (01) ==
LOC: LL.ED 14:21
DX: R07.89 Other chest pain (principal); I10 Essential (primary) hypertension; J45.909 Unspecified asthma, uncomplicated; E78.00 Pure hypercholesterolemia, unspecified; E66.9 Obesity, unspecified; Z79.899 Other long term (current) drug therapy; Z90.710 Acquired absence of both cervix and uterus; W19.XXXA Unspecified fall, initial encounter
CPT/HCPCS: 71101-RT; 73030-RT; 99283

== ENCOUNTER 2024-03-23 09:30 | Inpatient (IN) | payer MEDICARE ==
[2024-03-23 10:14] LABS: BASOPHILS ABSOLUTE AUTO 0.02 K/uL (0.00-0.20); BASOPHILS PERCENT AUTO 0.2 % (0.0-2.0); EOSINOPHILS ABSOLUTE AUTO 0.25 K/uL (0.00-0.50); EOSINOPHILS PERCENT AUTO 2.1 % (0.0-5.0); HEMATOCRIT 39.1 % (34.0-46.0); HEMOGLOBIN 12.8 g/dL (11.7-15.5); IMMATURE GRAN ABSOLUTE AUTO 0.03 10^3/uL (0.00-0.04); IMMATURE GRAN PERCENT AUTO 0.3 % (0.0-0.4); LYMPHOCYTES ABSOLUTE AUTO 0.17 K/uL (0.50-3.50); LYMPHOCYTES PERCENT AUTO 1.4 % (10.0-50.0); MEAN CORPUSCULAR HEMOGLOBIN 30.7 pg (28.2-33.3); MEAN CORPUSCULAR HGB CONC 32.7 g/dL (31.7-36.0); MEAN CORPUSCULAR VOLUME 93.8 fL (84.0-98.0); MONOCYTES ABSOLUTE AUTO 0.87 K/uL (0.00-1.00); MONOCYTES PERCENT AUTO 7.4 % (2.0-14.0); NEUTROPHILS ABSOLUTE AUTO 10.49 K/uL (1.40-7.00); NEUTROPHILS PERCENT AUTO 88.6 % (45.0-80.0); PLATELET COUNT,PLT 176 K/uL (150-350); RED BLOOD CELL COUNT 4.17 M/uL (3.77-5.09); RED CELL DISTRIBUTION WIDTH 13.2 % (11.2-14.1); WHITE BLOOD CELL COUNT,WBC 11.8 K/uL (4.0-10.2)
[2024-03-23 10:45] LABS: LACTIC ACID 1.5 mmol/L (0.4-2.0)
[2024-03-23 10:46] LABS: ALANINE AMINOTRANSFERASE,ALT 38 U/L (12-78); ALBUMIN 2.9 g/dL (3.4-5.0); ALKALINE PHOSPHATASE 109 IU/L (46-116); ANION GAP 12.7 meq/L (7-15); ASPARTATE AMNIOTRANSFERASE,AST 29 U/L (15-37); BILIRUBIN TOTAL 0.6 mg/dL (0.2-1.0); BLOOD UREA NITROGEN,BUN 13 mg/dL (7-18); C-REACTIVE PROTEIN 11.97 mg/dL (0.05-0.30); CALCIUM 8.8 mg/dL (8.5-10.1); CARBON DIOXIDE,CO2 28.6 mmol/L (21.0-32.0); CHLORIDE,CL 103 mmol/L (98-107); CREATININE 1.03 mg/dL (0.51-1.17); ESTIMATED GFR 57 mL/min (>=60); GLUCOSE RANDOM 151 mg/dL (70-99); POTASSIUM,K 3.3 mmol/L (3.5-5.1); PRO B-TYPE NATRIUR PEPT,BNPPRO 592 pg/mL (0-125); SODIUM,NA 141 mmol/L (136-145)
[2024-03-23] MEDS: Sodium Chloride 0.9% 1,000 ML IV ONE (10:46)
[2024-03-23] MEDS: Ondansetron 4 MG/2 ML SDV IVPUSH ONE (10:47)
[2024-03-23] MEDS: Ketorolac 15 MG/ML SDV IVPUSH ONE (10:47)
[2024-03-23] MEDS: Potassium Chloride 20 MEQ Tab.ER PO ONE (11:25)
[2024-03-23] MEDS: Acetaminophen 500 MG Tab PO ONE (11:25)
[2024-03-23] MEDS: Iopamidol 755 Mg/ML 100 ML Bottle IVPUSH STA (11:30)
[2024-03-23] MEDS ORDERED: Ondansetron 4 MG/2 ML SDV IVPUSH PRN (13:19)
[2024-03-23] MEDS: Albuterol/Ipratropium 3.0-0.5 MG/3 ML Neb Soln NEB SCH (13:43)
[2024-03-23] MEDS: Furosemide 40 MG/4 ML VIAL IVPUSH ONE (13:43)
[2024-03-23] MEDS: cefTRIAXone 1 GM in Sodium Chloride 0.9% 100 ML IV SCH (13:43)
[2024-03-23] MEDS: Sodium Chloride 0.9% 10 ML Syringe FLUSH PRN (13:44)
[2024-03-23] MEDS: Pantoprazole 40 MG Vial IV SCH (13:52)
[2024-03-23] MEDS: traZODone 50 MG Tab PO ONE (14:00)
[2024-03-23] MEDS: Potassium Chloride 10 MEQ Tab.ER PO SCH (17:56)
[2024-03-23] MEDS: Apixaban 5 MG Tab PO SCH (17:59)
[2024-03-23] MEDS: traZODone 50 MG Tab PO SCH (19:25)
[2024-03-23] MEDS: Acetaminophen 325 MG Tab PO PRN (19:25)
[2024-03-23] MEDS: diphenhydrAMINE 50 MG/ML SDV IVPUSH ONE (19:46)
[2024-03-23] MEDS: methylPREDNISolone Sodium Succinate 40 MG/1 ML SDV IVPUSH ONE (19:46)
[2024-03-23] MEDS: methylPREDNISolone Sodium Succinate 40 MG/1 ML SDV ONE (19:51)
[2024-03-23] MEDS: Benzonatate 100 MG Cap PO PRN (21:59)
[2024-03-23] MEDS: Albuterol 0.083% 2.5 MG/3 ML Neb Soln NEB PRN (22:22)
[2024-03-23] MEDS ORDERED: Non-Formulary Medication 1 Each INH SCH (22:30)
[2024-03-24 00:17] LABS: APPEARANCE,URINE SLIGHTLY CLOUDY; BILIRUBIN,URINE NEGATIVE (NEGATIVE); COLOR,URINE YELLOW; GLUCOSE,URINE NEGATIVE (NEGATIVE); KETONES,URINE NEGATIVE (NEGATIVE); LEUKOCYTE ESTERASE,URINE NEGATIVE (NEGATIVE); NITRITE,URINE NEGATIVE (NEGATIVE); OCCULT BLOOD,URINE NEGATIVE (NEGATIVE); PROTEIN,URINE NEGATIVE (NEGATIVE); UROBILINOGEN,URINE 0.2 E.U./dL (0.2-1.0)
[2024-03-24] MEDS: diphenhydrAMINE 50 MG/ML SDV IVPUSH SCH (03:37)
[2024-03-24] MEDS: Escitalopram 10 MG Tab PO SCH (07:42)
[2024-03-24] MEDS: Loratadine 10 MG Tab PO SCH (07:42)
[2024-03-24] MEDS: Furosemide 20 MG/2 ML VIAL IVPUSH SCH (07:50)
[2024-03-24] MEDS: Pravastatin 20 MG Tab PO SCH (08:05)
[2024-03-24] MEDS: Hydrochlorothiazide/Triamterene 50-75 MG Tab PO SCH (08:06)
[2024-03-24] MEDS: Metoprolol Succinate 25 MG Tab.ER PO SCH (08:06)
[2024-03-24] MEDS: Formoterol/Mometasone 200-5 MCG 8.8 GM Inhaler INH SCH (08:07)
[2024-03-24 08:12] LABS: EOSINOPHILS ABSOLUTE AUTO 0.01 K/uL (0.00-0.50); EOSINOPHILS PERCENT AUTO 0.2 % (0.0-5.0); HEMATOCRIT 36.3 % (34.0-46.0); IMMATURE GRAN ABSOLUTE AUTO 0.01 10^3/uL (0.00-0.04); IMMATURE GRAN PERCENT AUTO 0.2 % (0.0-0.4); LYMPHOCYTES ABSOLUTE AUTO 0.32 K/uL (0.50-3.50); LYMPHOCYTES PERCENT AUTO 7.2 % (10.0-50.0); MEAN CORPUSCULAR HEMOGLOBIN 30.6 pg (28.2-33.3); MEAN CORPUSCULAR HGB CONC 33.1 g/dL (31.7-36.0); MEAN CORPUSCULAR VOLUME 92.6 fL (84.0-98.0); MONOCYTES ABSOLUTE AUTO 0.16 K/uL (0.00-1.00); MONOCYTES PERCENT AUTO 3.6 % (2.0-14.0); NEUTROPHILS ABSOLUTE AUTO 3.94 K/uL (1.40-7.00); NEUTROPHILS PERCENT AUTO 88.8 % (45.0-80.0); PLATELET COUNT,PLT 184 K/uL (150-350); RED BLOOD CELL COUNT 3.92 M/uL (3.77-5.09); WHITE BLOOD CELL COUNT,WBC 4.4 K/uL (4.0-10.2)
[2024-03-24 08:34] LABS: ANION GAP 12.2 meq/L (7-15); CALCIUM 8.6 mg/dL (8.5-10.1); CARBON DIOXIDE,CO2 23.8 mmol/L (21.0-32.0); CREATININE 1.07 mg/dL (0.51-1.17); EST CRCL DRUG DOSING (CG) 50.77 mL/min
[2024-03-24 12:36] VITALS: BP 140/67; PULSE 89
[2024-03-24] MEDS: Magnesium Oxide 400 MG Tab PO SCH (12:36)
[2024-03-24] MEDS: predniSONE 20 MG Tab PO ONE (12:52)
== END 2024-03-24 13:01 | disposition home or self-care (01) | DRG 866 ==
LOC: LL.ED 09:30 → LL.MS 12:51 → UNDOADMIN 12:51 → LL.MS 13:19 → UNDODISIN 03-24 13:01
PROVIDERS: ADMIT Emergency Medicine; ATTEND Emergency Medicine
DX: R53.1 Weakness (principal); B34.9 Viral infection, unspecified; J91.8 Pleural effusion in other conditions classified elsewhere; T50.905A Adverse effect of unspecified drugs, medicaments and biological substances, initial encounter; H26.9 Unspecified cataract; E78.5 Hyperlipidemia, unspecified; E78.00 Pure hypercholesterolemia, unspecified; I10 Essential (primary) hypertension; J45.909 Unspecified asthma, uncomplicated; K21.9 Gastro-esophageal reflux disease without esophagitis; G47.30 Sleep apnea, unspecified; F41.9 Anxiety disorder, unspecified; F32.A Depression, unspecified; E66.9 Obesity, unspecified; R09.02 Hypoxemia; E83.42 Hypomagnesemia; F39 Unspecified mood [affective] disorder; G47.00 Insomnia, unspecified; Z53.9 Procedure and treatment not carried out, unspecified reason; Z87.440 Personal history of urinary (tract) infections; Z79.01 Long term (current) use of anticoagulants; Z79.1 Long term (current) use of non-steroidal anti-inflammatories (NSAID); Z68.30 Body mass index [BMI] 30.0-30.9, adult; Z90.710 Acquired absence of both cervix and uterus; Z98.890 Other specified postprocedural states; Z87.81 Personal history of (healed) traumatic fracture; Z79.51 Long term (current) use of inhaled steroids; Z79.899 Other long term (current) drug therapy; Z79.02 Long term (current) use of antithrombotics/antiplatelets; Z86.711 Personal history of pulmonary embolism
CPT/HCPCS: 36415; 71275; 80048; 80053; 81003; 83605; 83735; 83880; 85025; 85379; 86140; 87040; 87428-QW; 94640; 96361; 96374; 96375; 99223; 99238; 99285-25; A9270-GY; J0696; J1200; J1885; J1940; J2405; J2470; J2919; J3490; J7030; J7512; J7613-GY; J7620-GY; Q9967